=== PATIENT | male | born 1985 | race Hispanic/Latino ===

== ENCOUNTER 2021-12-22 11:28 | Emergency (ER) | payer OTHER ==
[~2021-12-22] VITALS: Ht 182.9 cm; Wt 104.8 kg
[2021-12-22] MEDS ORDERED: KETOROLAC 30MG VIAL (30MG/ML) IM SCH (12:00)
[2021-12-22] MEDS ORDERED: NAPR500T6 PO (12:54)
[2021-12-22 13:11] VITALS: BP 122/84
== END 2021-12-22 13:14 | disposition home or self-care (01) ==
LOC: EDH 11:28
DX: G89.29 Other chronic pain (principal); M25.512 Pain in left shoulder; F41.9 Anxiety disorder, unspecified; E11.9 Type 2 diabetes mellitus without complications
CPT/HCPCS: 99283; 73030; 96372; J1885